=== PATIENT | male | born 1990 | race Two or more races ===

== ENCOUNTER 2020-01-11 12:12 | Emergency (ER) | payer BC, OTHER ==
[~2020-01-11] VITALS: Ht 185.4 cm; Wt 139.1 kg
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
[2020-01-11] MEDS ORDERED: FLUT1DIS3 INH (12:55)
[2020-01-11] MEDS ORDERED: KETOROLAC 30 MG/1 ML IM ONE (13:30)
[2020-01-11] MEDS ORDERED: KETOROLAC 30 MG/1 ML ONE (14:24)
--- NOTE | 2020-01-11 14:35 | NUR ---
MEDICATED PATIENT PER MAR. HE IS RESTING COMFORTABLY AWAITING DISCHARGE. NO FAMILY AT BEDSIDE, CALL LIGHT WITHIN REACH.
[2020-01-11 14:49] VITALS: BP 121/89
== END 2020-01-11 14:54 | disposition home or self-care (01) ==
LOC: ED 14:19
DX: S39.012A Strain of muscle, fascia and tendon of lower back, initial encounter (principal); J45.909 Unspecified asthma, uncomplicated; F17.290 Nicotine dependence, other tobacco product, uncomplicated; V43.52XA Car driver injured in collision with other type car in traffic accident, initial encounter; Y93.89 Activity, other specified; Y92.410 Unspecified street and highway as the place of occurrence of the external cause; Y99.8 Other external cause status
CPT/HCPCS: 72110; 96372; 99283; 99406; J1885